=== PATIENT | female | born 1995 | race Caucasian/White ===

== ENCOUNTER → 2017-10-19 | Outpatient (CLI) | payer BC ==
--- NOTE | 2017-10-19 12:02 | Diagnostic Imaging Report ---
INDICATION: Left shoulder dislocation. Time of exam 12:03 PM 2 views left shoulder demonstrate normal glenohumeral and acromioclavicular alignment. Acromiohumeral space is normal. No fracture or dislocation is seen. IMPRESSION: No acute abnormality is detected. Report was faxed to Georgina Eastman by nabeel at 12:05 p.m. Dictated by: Dictated on workstation # [id number]
== END ==
LOC: RAD 11:28
PROVIDERS: ATTEND Nurse Practitioner Family
DX: S43.005A Unspecified dislocation of left shoulder joint, initial encounter (principal)
CPT/HCPCS: 73030

== ENCOUNTER → 2018-01-01 | Outpatient (CLI) | payer BC ==
--- NOTE | 2018-01-01 15:22 | Diagnostic Imaging Report ---
INDICATION: Low back pain. TIME OF EXAMINATION: 02:56 p.m. FINDINGS: Three views of the lumbar spine were obtained. Curvature and alignment is normal. Vertebral body heights and disc spaces are well-maintained. No fracture or subluxation is seen. IMPRESSION: No acute bony abnormality is detected. Dictated by: Dictated on workstation # [id number]
== END ==
LOC: RAD 14:22
PROVIDERS: ATTEND Chiropractor
DX: M99.04 Segmental and somatic dysfunction of sacral region (principal); M99.05 Segmental and somatic dysfunction of pelvic region; M99.03 Segmental and somatic dysfunction of lumbar region; M79.10 Myalgia, unspecified site
CPT/HCPCS: 72100

== ENCOUNTER → 2018-01-07 | Outpatient (CLI) | payer BC ==
--- NOTE | 2018-01-07 15:10 | Diagnostic Imaging Report ---
PROCEDURE: MRI lumbar spine. TECHNIQUE: Multiplanar, multisequence MRI of the lumbar spine was performed without contrast. INDICATION: Chronic low back pain. COMPARISON: No prior studies are available for comparison. FINDINGS: Curvature and alignment is within normal limits. The vertebral body heights and marrow signal are normal. No geographic marrow lesion or acute compression fracture is seen. There is normal height and hydration to the lumbar discs with the exception of the L4-5 level where there is some slight disc space narrowing and desiccation. The conus is unremarkable at the L1-2 level. T12-L1: No central canal or neural foraminal narrowing is seen. L1-2: Unremarkable. L2-3: Unremarkable. L3-4: Unremarkable. L4-5: There is a wide-based midline/right paramidline disc bulge indenting the ventral thecal sac and narrowing the canal. AP dimensions of the sac is approximately 8 mm. This significantly narrows the right lateral recess as well. Neural foramina remain patent. L5-S1: Unremarkable. IMPRESSION: L4-5 degenerative disc disease with large wide-based midline/right paramidline disc bulge producing central canal narrowing as well as right lateral recess narrowing. Dictated by: Dictated on workstation # [id number]
== END ==
LOC: RAD 14:06
PROVIDERS: ATTEND Chiropractor
DX: M48.061 Spinal stenosis, lumbar region without neurogenic claudication (principal); M51.26 Other intervertebral disc displacement, lumbar region; M51.36 Other intervertebral disc degeneration, lumbar region; M79.10 Myalgia, unspecified site; M99.03 Segmental and somatic dysfunction of lumbar region; M99.04 Segmental and somatic dysfunction of sacral region; M99.05 Segmental and somatic dysfunction of pelvic region
CPT/HCPCS: 72148

== ENCOUNTER → 2018-10-27 | Outpatient (CLI) | payer BC ==
--- NOTE | 2018-10-27 18:22 | Diagnostic Imaging Report ---
PROCEDURE: US thyroid. TECHNIQUE: Multiple real-time grayscale images were obtained of the thyroid in various projections. INDICATION: Thyromegaly. COMPARISON: No comparison available. FINDINGS: The right lobe of the thyroid is normal in size and echogenicity. It measures 5.2 x 1.9 x 2.1 cm. No nodules are seen. Left lobe of the thyroid is normal in size and echogenicity. It measures 5.7 x 1.7 x 1.7 cm. No nodules are seen. Echogenicity is normal. The isthmus is normal measuring 4 mm. IMPRESSION: Normal thyroid gland. Dictated by: Dictated on workstation # [id number]
== END ==
LOC: RAD 13:58
PROVIDERS: ATTEND Nurse Practitioner Family
DX: E01.0 Iodine-deficiency related diffuse (endemic) goiter (principal); R00.2 Palpitations
CPT/HCPCS: 76536

== ENCOUNTER 2019-01-10 15:55 | Emergency (ER) | payer BC ==
[~2019-01-10] VITALS: Ht 175 cm; Wt 120.0 kg
[2019-01-10 16:10] LABS: BASOPHILS % (AUTO) 0 % (0-10); EOSINOPHILS # (AUTO) 0.2 10^3/uL (0.0-0.3); EOSINOPHILS % (AUTO) 1 % (0-10); HEMATOCRIT 40 % (35-52); HEMOGLOBIN 12.9 G/DL (11.5-16.0); LYMPHOCYTES # (AUTO) 2.5 X 10^3 (1.0-4.0); LYMPHOCYTES % (AUTO) 19 % (12-44); MEAN CORPUSCULAR HEMOGLOBIN 28 PG (25-34); MEAN CORPUSCULAR HGB CONC 32 G/DL (32-36); MEAN CORPUSCULAR VOLUME 86 FL (80-99); MEAN PLATELET VOLUME 10.4 FL (7.4-10.4); MONOCYTES # (AUTO) 0.7 X 10^3 (0.0-1.0); MONOCYTES % (AUTO) 5 % (0-12); NEUTROPHILS # (AUTO) 9.9 X 10^3 (1.8-7.8); NEUTROPHILS % (AUTO) 75 % (42-75); PLATELET COUNT 418 10^3/uL (130-400); WHITE BLOOD COUNT 13.2 10^3/uL (4.3-11.0)
--- NOTE | 2019-01-10 16:11 | ED Cardiac General ---
History of Present Illness General Chief Complaint: Chest Pain Stated Complaint: CP History of Present Illness Date Seen by Provider: Jan 10, 2019 Time Seen by Provider: 16:00 Initial Comments 23-year-old female presents for chest pressure. It began at approximately 1300 today and lasted anywhere from 5-10 minutes. Patient had a previous history of a similar episode after taking prednisone and 2018. She has not been recently on prednisone. She never followed up with a remotely operated vehicle. She did take aspirin 325 mg orally at onset of her pressure. She describes it as feeling like her heart stops and then restarts. Her mother has mitral valve prolapse and several family members have Ulcerative Colitis and Crohn's Disease. She has hx of IBS. She denies any added stress today that precipitated her symptoms. She denies n/v/d, diaphoresis or anxiety. Only recent medication change was from Cytomel 10 g daily to 50 g daily, per Tiki Murrieta APRN approximately 1 month ago. 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 Associated Systoms: Denies Symptoms; No Chest Pain, No Cough, No Diaphoresis, No Fever/Chills, No Headaches, No Loss of Appetite, No Malaise, No Nausea/Vomiting, No Rash, No Seizure, No Shortness of Air, No Syncope, No Weakness, No Other Allergies and Home Medications Allergies Coded Allergies: No Known Drug Allergies (Unverified , 01/10/19) Home Medications Bupropion HCl 100 Mg Tablet.er, 100 MG PO DAILY, (Reported) Buspirone HCl 10 Mg Tablet, 10 MG PO BID, (Reported) Colestipol HCl 1 Gm Tablet, 1 GM PO BID, (Reported) Liothyronine Sodium 25 Mcg Tablet, 25 MCG PO DAILY, (Reported) Metformin HCl 1,000 Mg Tablet, 1,000 MG PO BID, (Reported) Semaglutide 0.25 Mg/0.2 Ml Pen.injctr, 0.5 MG SQ WEEK, (Reported) Sertraline HCl 50 Mg Tablet, 50 MG PO DAILY, (Reported) Spironolactone 50 Mg Tablet, 50 MG PO DAILY, (Reported) Topiramate 100 Mg Tablet, 100 MG PO HS, (Reported) Trazodone HCl 100 Mg Tablet, 100 MG PO HS, (Reported) Patient Home Medication List Home Medication List Reviewed: Yes Review of Systems Review of Systems Constitutional: no symptoms reported, see HPI Cardiovascular: See HPI, Chest Pain; Denies Edema; Irregular Heart Rate; Denies Lightheadedness, Denies Palpitations, Denies Syncope Gastrointestinal: No Symptoms Reported, See HPI Genitourinary: No Symptoms Reported, See HPI All Other Systems Reviewed Negative Unless Noted: Yes Past Authmlk-Tzzuod-Gkrned Hx Past Med/Social Hx: Reviewed Nursing Past Med/Soc Hx Patient Social History Recent Foreign Travel: No Contact w/Someone Who Travel: No Physical Exam Vital Signs Vital Signs - First Documented 01/10/19 15:58 Temp 36.4 Pulse 112 Resp 18 B/P (MAP) 127/84 (98) Pulse Ox 100 O2 Delivery Room Air Capillary Refill : Height, Weight, BMI Height: '" Weight: lbs. oz. kg; BMI Method: General Appearance: No Apparent Distress, WD/WN HEENT: PERRL/EOMI, TMs Normal, Normal ENT Inspection, Pharynx Normal Neck: Full Range of Motion, Normal Inspection, Non Tender, Supple Respiratory: Chest Non Tender, Lungs Clear, Normal Breath Sounds Cardiovascular: Regular Rate, Rhythm, No Edema, Normal Peripheral Pulses, Tachycardia (90-110 Sinus rhythm) Gastrointestinal: Normal Bowel Sounds, Non Tender, Soft Extremity: Normal Capillary Refill, Normal Inspection, Normal Range of Motion, No Pedal Edema Neurologic/Psychiatric: Alert, Oriented x3, No Motor/Sensory Deficits, Normal Mood/Affect Skin: Normal Color, Warm/Dry Lymphatic: No Adenopathy Progress/Results/Core Measures Results/Orders Lab Results Laboratory Tests Test 01/10/19 16:00 01/10/19 16:08 Range/Units White Blood Count 13.2 H 4.3-11.0 10^3/uL Red Blood Count 4.63 4.35-5.85 10^6/uL Hemoglobin 12.9 11.5-16.0 G/DL Hematocrit 40 35-52 % Mean Corpuscular Volume 86 80-99 FL Mean Corpuscular Hemoglobin 28 25-34 PG Mean Corpuscular Hemoglobin Concent 32 32-36 G/DL Red Cell Distribution Width 13.0 10.0-14.5 % Platelet Count 418 H 130-400 10^3/uL Mean Platelet Volume 10.4 7.4-10.4 FL Neutrophils (%) (Auto) 75 42-75 % Lymphocytes (%) (Auto) 19 12-44 % Monocytes (%) (Auto) 5 0-12 % Eosinophils (%) (Auto) 1 0-10 % Basophils (%) (Auto) 0 0-10 % Neutrophils # (Auto) 9.9 H 1.8-7.8 X 10^3 Lymphocytes # (Auto) 2.5 1.0-4.0 X 10^3 Monocytes # (Auto) 0.7 0.0-1.0 X 10^3 Eosinophils # (Auto) 0.2 0.0-0.3 10^3/uL Basophils # (Auto) 0.0 0.0-0.1 10^3/uL Prothrombin Time 12.6 12.2-14.7 SEC INR Comment 0.9 0.8-1.4 Activated Partial Thromboplast Time 28 24-35 SEC Sodium Level 140 135-145 MMOL/L Potassium Level 3.8 3.6-5.0 MMOL/L Chloride Level 109 H 98-107 MMOL/L Carbon Dioxide Level 20 L 21-32 MMOL/L Anion Gap 11 5-14 MMOL/L Blood Urea Nitrogen 11 7-18 MG/DL Creatinine 0.81 0.60-1.30 MG/DL Estimat Glomerular Filtration Rate > 60 BUN/Creatinine Ratio 14 Glucose Level 86 70-105 MG/DL Calcium Level 9.5 8.5-10.1 MG/DL Corrected Calcium 9.3 8.5-10.1 MG/DL Magnesium Level 1.8 1.6-2.4 MG/DL Total Bilirubin 0.3 0.1-1.0 MG/DL Aspartate Amino Transf (AST/SGOT) 31 5-34 U/L Alanine Aminotransferase (ALT/SGPT) 156 H 0-55 U/L Alkaline Phosphatase 53 40-136 U/L Myoglobin 18.7 10.0-92.0 NG/ML Troponin I < 0.028 <0.028 NG/ML C-Reactive Protein High Sensitivity 1.82 H 0.00-0.50 MG/DL Total Protein 7.2 6.4-8.2 GM/DL Albumin 4.3 3.2-4.5 GM/DL Free Thyroxine 0.46 L 0.70-1.48 NG/DL TSH [place] Testing 0.03 L 0.35-4.94 UIU/ML Urine Color YELLOW Urine Clarity CLEAR Urine pH 6.0 5-9 Urine Specific [place] 1.010 L 1.016-1.022 Urine Protein NEGATIVE NEGATIVE Urine Glucose (UA) NEGATIVE NEGATIVE Urine Ketones NEGATIVE NEGATIVE Urine Nitrite NEGATIVE NEGATIVE Urine Bilirubin NEGATIVE NEGATIVE Urine Urobilinogen 0.2 < = 1.0 MG/DL Urine Leukocyte Esterase TRACE NEGATIVE Urine RBC (Auto) NEGATIVE NEGATIVE Urine RBC NONE /HPF Urine WBC 0-2 /HPF Urine Squamous Epithelial Cells 2-5 /HPF Urine Crystals NONE /LPF Urine Bacteria NEGATIVE /HPF Urine Casts NONE /LPF Urine Mucus NEGATIVE /LPF Urine Culture Indicated NO My Orders Orders - GINGER HENDERSON Cbc With Automated Diff (01/10/19 16:05) Magnesium (01/10/19 16:05) Chest 1 View, Ap/Pa Only (01/10/19 16:05) Ekg Tracing (01/10/19 16:05) Cardiac Profile 1 (01/10/19 16:05) Comprehensive Metabolic Panel (01/10/19 16:05) Myoglobin Serum (01/10/19 16:05) Protime With Inr (01/10/19 16:05) Partial Thromboplastin Time (01/10/19 16:05) Monitor-Rhythm Ecg Trace Only (01/10/19 16:05) Ed Iv/Invasive Line Start (01/10/19 16:05) Urine Bedside (01/10/19 16:05) Ua Culture If Indicated (01/10/19 16:05) Hs C Reactive Protein (01/10/19 17:16) Thyroid Analyzer (01/10/19 17:45) Free T4 (Free Thyroxine) (01/10/19 16:00) Vital Signs/I&O 01/10/19 01/10/19 01/10/19 15:58 16:00 18:00 Temp 36.4 36.4 Pulse 112 95 Resp 18 18 B/P (MAP) 127/84 (98) 116/77 (98) Pulse Ox 100 100 O2 Delivery Room Air Room Air Room Air Progress Progress Note : Time: 16:00 Progress Note Patient seen and evaluated, will obtain EKG, labs, chest x-ray and continue to monitor. 1645 Labs all WNL. Patient reports s/s have not been present since admission to ED. [address] Rudolph, reviewed exam and EKG. 1740 Follow up with Tiki Murrieta APRN for hyperthyroid, slowly taper dose of Cytomel, this may be causing the tachycardia and palpitations. Discharge instructions and return precautions reviewed with the patient. All questions answered. Initial ECG Impression Date: Jan 10, 2019 Initial ECG Impression Time: 16:04 Initial ECG Rate: 102 Initial ECG Rhythm: Normal Sinus Initial ECG Intervals: Normal Initial ECG Intervals NM 152, QRSD 80, QT 332, QTC 433. [place] P 28, QRS 42, T 15. Initial ECG Impression: Normal Initial ECG Comparisson: No Previous ECG Available Comment Reviewed with Dr. Hart, agreed with interpretation. Departure Impression Primary Impression: Palpitations Additional Impression: Hyperthyroidism Disposition: 01 HOME, SELF-CARE Condition: Improved Departure-Patient Inst. Decision time for Depature: 17:40 Referrals: ORESTES MURRIETA DNP (PCP/Family) Primary Care Physician Patient Instructions: Palpitations (DC) Add. Discharge Instructions: Continue taking your home medications. Follow-up with Dr. Rudolph, call for appt [phone] Increase water intake, 16 oz every 2hours while awake. Return to the emergency department for persistent chest pain, palpitations or new urgent concerns. All discharge instructions reviewed with patient and/or family. Voiced understanding. Copy Copies To 1: Sharad RUDOLPH MD; JUNIOR MOORE MD Copies To 2: EFRAÍN MURRIETA AMY ARNP Jan 10, 2019 16:11 POS
[2019-01-10 16:20] LABS: BILIRUBIN,URINE NEGATIVE (NEGATIVE); CLARITY,URINE CLEAR; COLOR,URINE YELLOW; GLUCOSE, URINE (UA) NEGATIVE (NEGATIVE); KETONES,URINE NEGATIVE (NEGATIVE); LEUKOCYTE ESTERASE ,URINE TRACE (NEGATIVE); NITRITE,URINE NEGATIVE (NEGATIVE); PROTEIN,URINE NEGATIVE (NEGATIVE)
[2019-01-10 16:22] LABS: INR 0.9 (0.8-1.4); PROTHROMBIN TIME PATIENT 12.6 SEC (12.2-14.7)
[2019-01-10 16:26] LABS: ALANINE AMINOTRANSFERASE 156 U/L (0-55); ALBUMIN 4.3 GM/DL (3.2-4.5); ALKALINE PHOSPHATASE 53 U/L (40-136); BILIRUBIN,TOTAL 0.3 MG/DL (0.1-1.0); BUN/CREATININE RATIO 14; CALCIUM 9.5 MG/DL (8.5-10.1); CARBON DIOXIDE 20 MMOL/L (21-32); CHLORIDE 109 MMOL/L (98-107); CREATININE SERUM 0.81 MG/DL (0.60-1.30); GFR ESTIMATED > 60; GLUCOSE 86 MG/DL (70-105); MAGNESIUM 1.8 MG/DL (1.6-2.4); POTASSIUM 3.8 MMOL/L (3.6-5.0); SODIUM 140 MMOL/L (135-145); TOTAL PROTEIN 7.2 GM/DL (6.4-8.2)
[2019-01-10 16:26] LABS: BACTERIA,URINE NEGATIVE /HPF; WBC,URINE 0-2 /HPF
--- NOTE | 2019-01-10 16:56 | Diagnostic Imaging Report ---
EXAM: CHEST 1 VIEW, AP/PA ONLY. INDICATION: Chest pain. COMPARISON: None. FINDINGS: Normal heart size and pulmonary vascularity. No dense consolidation, pleural effusion, or pneumothorax. No acute osseous findings. IMPRESSION: Negative chest. Dictated by: Dictated on workstation # [id number]
[2019-01-10] MEDS ORDERED: TOPI100T PO (17:17)
[2019-01-10] MEDS ORDERED: BUSP10TA95 PO (17:17)
[2019-01-10] MEDS ORDERED: SERT50TA2 PO (17:17)
[2019-01-10] MEDS ORDERED: D3 (17:17)
[2019-01-10] MEDS ORDERED: METF-399 PO (17:17)
[2019-01-10] MEDS ORDERED: BUPR100T7 PO (17:17)
[2019-01-10] MEDS ORDERED: CYAN100088 PO (17:17)
[2019-01-10] MEDS ORDERED: COLE1TAB PO (17:17)
[2019-01-10] MEDS ORDERED: SPIR50TA4 PO (17:17)
[2019-01-10] MEDS ORDERED: SEMA0.25 SQ (17:17)
[2019-01-10] MEDS ORDERED: TRAZ-190 PO (17:17)
[2019-01-10] MEDS ORDERED: [UNRECOGNIZED DRUG - CODE] PO (17:45)
[2019-01-10 18:00] VITALS: BP 116/77
[2019-01-10 18:34] LABS: TSH (THYROID ANALYZER) 0.03 UIU/ML (0.35-4.94)
[2019-01-10 19:06] LABS: FREE T4 (FREE THYROXINE) 0.46 NG/DL (0.70-1.48)
== END 2019-01-10 18:00 | disposition home or self-care (01) ==
LOC: EDUNIT# 15:55 → ER 15:57
DX: R00.2 Palpitations (principal); E05.90 Thyrotoxicosis, unspecified without thyrotoxic crisis or storm; K58.9 Irritable bowel syndrome, unspecified; Z79.84 Long term (current) use of oral hypoglycemic drugs
CPT/HCPCS: 36415; 71045; 80053; 81000; 83735; 83874; 84439; 84443; 84484; 84703; 85025; 85610; 85730; 86141; 93005; 93041

== ENCOUNTER → 2019-01-17 | Outpatient (CLI) | payer BC ==
[~2019-01-17] MED LIST: BUPR100T7 PO; BUSP10TA95 PO; COLE1TAB PO; CYAN100088 PO; D3; METF-399 PO; SEMA0.25 SQ; SERT50TA2 PO; SPIR50TA4 PO; TOPI100T PO; TRAZ-190 PO; [UNRECOGNIZED DRUG - CODE] PO
--- NOTE | 2019-01-17 10:57 | Diagnostic Imaging Report ---
PROCEDURE: US Gallbladder. TECHNIQUE: Multiple real-time grayscale images were obtained over the right upper quadrant in various projections. INDICATION: Right upper quadrant pain. FINDINGS: The gallbladder appeared to be normal. No stone or sludge. The wall non-thickened. There is no pericholecystic fluid. Liver parenchyma appeared normal. There is no dilatation of the intrahepatic bile ducts. The extrahepatic duct however was largely obscured by regional shadowing bowel gas. There is also obscuration of the pancreas. The right kidney is unobstructed and appeared normal. There was no ascites or demonstrated fluid collection. IMPRESSION: No abnormality identified at right upper quadrant ultrasound. Dictated by: Dictated on workstation # [id number]
== END ==
LOC: RAD 08:49
PROVIDERS: ATTEND Nurse Practitioner Family
DX: R10.11 Right upper quadrant pain (principal); R10.13 Epigastric pain
CPT/HCPCS: 76705

== ENCOUNTER 2019-01-20 21:07 | Outpatient (CLI) | payer BC | END 2019-01-21 06:05 | disposition home or self-care (01) | LOC: SLEEP 21:07 | PROVIDERS: ATTEND Nurse Practitioner Family | DX: G47.33 Obstructive sleep apnea (adult) (pediatric) (principal) | CPT/HCPCS: 95810 ==

== ENCOUNTER 2019-02-09 | Outpatient (RCR) | payer BC | END 2019-04-12 | disposition home or self-care (01) | LOC: CARD | PROVIDERS: ATTEND Internal Medicine Interventional Cardiology | DX: R00.2 Palpitations (principal) | CPT/HCPCS: 93306 ==

== ENCOUNTER → 2019-02-24 | Outpatient (CLI) | payer BC ==
[~2019-02-24] MED LIST changes: +CATHETER FLUSH 10 ML SYR IV PRN
--- NOTE | 2019-02-24 15:32 | Diagnostic Imaging Report ---
INDICATION: Right upper quadrant pain. TECHNIQUE: Patient was administered 4.8 mCi technetium 99m Choletec intravenously and imaging over the abdomen was performed. After 60 minutes, the patient ingested one can of Ensure and a gallbladder ejection fraction was calculated. FINDINGS: There is homogeneous uptake of activity by the liver with prompt excretion of activity into the common duct and gallbladder. Normal passage of activity into the small bowel is identified. There is also some reflux of activity into the stomach. Gallbladder ejection fraction is lower limits of normal at 38%. Normal values are 33% or greater. IMPRESSION: 1. Patent cystic duct and common bile duct. 2. Lower limits of normal gallbladder ejection fraction of 38%. 3. Gastric bile reflux. Dictated by: Dictated on workstation # [id number]
== END ==
LOC: CARD 12:11
PROVIDERS: ATTEND Nurse Practitioner Family
DX: K21.9 Gastro-esophageal reflux disease without esophagitis (principal)
CPT/HCPCS: 78227